=== PATIENT | female | born 1940 | race Caucasian/White ===

== ENCOUNTER 2017-10-11 14:34 | Day surgery (SDC) | payer MEDICARE, OTHER ==
[~2017-10-11] VITALS: Ht 152.4 cm; Wt 56.9 kg
[~2017-10-11 14:34] MED LIST: ESTR.05PBW TOP; FAMO20 PO; GABA100 PO; HYDACE5 PO; INTE30I SC; NIFE30ER PO; ONDA4ODT MM; OXYACE5T PO; PROM25 PO; RXONDA4ODT MM; TIMO.25OPS OD; VESICARE
== END 2017-10-11 15:22 | disposition home or self-care (01) ==
LOC: ORSCSDS 14:34
PROVIDERS: Anesthesiology
PROC: 3E0R33Z Introduction of Anti-inflammatory into Spinal Canal, Percutaneous Approach (ICD-10-PCS; principal; 2017-10-11 15:30)
DX: M51.16 Intervertebral disc disorders with radiculopathy, lumbar region (principal); M48.061 Spinal stenosis, lumbar region without neurogenic claudication; M43.16 Spondylolisthesis, lumbar region; E11.9 Type 2 diabetes mellitus without complications; G35 Multiple sclerosis; I10 Essential (primary) hypertension; E78.00 Pure hypercholesterolemia, unspecified; Z79.84 Long term (current) use of oral hypoglycemic drugs
CPT/HCPCS: J1040

== ENCOUNTER → 2019-03-01 | Outpatient (CLI) | payer MEDICARE, OTHER ==
[2019-03-01 15:32] LABS: Adenovirus F 40/41 Not Detected (NOT DETECT); Astrovirus Not Detected (NOT DETECT); Campylobacter Sp Not Detected (NOT DETECT); Cryptosporidium Not Detected (NOT DETECT); Cyclospora Cayetanensis Not Detected (NOT DETECT); E. Coli O157 Not Detected (NOT DETECT); Entamoeba Histolytica Not Detected (NOT DETECT); Enteroaggregative E. coli-EAEC Not Detected (NOT DETECT); Enteropathogenic E. coli-EPEC Not Detected (NOT DETECT); Enterotoxigenic E. coli-ETEC Not Detected (NOT DETECT); Giardia Lamblia Not Detected (NOT DETECT); Norovirus GI/GII Not Detected (NOT DETECT); Plesiomonas Shigelloides Not Detected (NOT DETECT); Rotavirus A Not Detected (NOT DETECT); Salmonella Sp Not Detected (NOT DETECT); Sapovirus Not Detected (NOT DETECT); Shiga Toxin-prod E. coli-STEC Not Detected (NOT DETECT); Shigella/Enteroin E. coli-EIEC Not Detected (NOT DETECT); Vibrio Cholerae Not Detected (NOT DETECT); Vibrio Sp Not Detected (NOT DETECT); Yersinia Enterocolitica Not Detected (NOT DETECT)
== END | disposition home or self-care (01) ==
LOC: LAB 13:32 → LAB SHORT 13:32 → LAB FUT 02-28 18:00
PROVIDERS: Family Medicine
DX: A09 Infectious gastroenteritis and colitis, unspecified (principal)
CPT/HCPCS: 0097U

== ENCOUNTER → 2021-04-11 | Outpatient (CLI) | payer MEDICARE, OTHER | LOC: LAB 11:44 → LAB SHORT 11:44 | DX: D48.5 Neoplasm of uncertain behavior of skin (principal); Z88.0 Allergy status to penicillin; Z88.8 Allergy status to other drugs, medicaments and biological substances | CPT/HCPCS: 88305 ==

== ENCOUNTER 2023-01-30 18:27 | Inpatient (IN) | payer OTHER, MEDICARE ==
[~2023-01-30] VITALS: Ht 149.9 cm; Wt 70.2 kg
[2023-01-30] MEDS ORDERED: MYRBETRIQ50 MG PO (19:10)
[2023-01-30] MEDS ORDERED: PRAV20 PO (19:19)
[2023-01-30] MEDS ORDERED: TRIM100 PO (19:19)
[2023-01-30] MEDS ORDERED: EUTHYROX50 MCG PO (19:20)
[2023-01-30] MEDS ORDERED: PANT40 PO (19:21)
[2023-01-30] MEDS ORDERED: HYDCHL25 PO (19:23)
[2023-01-30] MEDS ORDERED: METF500 PO (19:24)
[2023-01-30 19:25] LABS: BASOPHILS ABSOLUTE AUTO 0.05 K/mm3 (0.00-0.23); BASOPHILS PERCENT AUTO 0 % (0-2); EOSINOPHILS ABSOLUTE AUTO 0.05 K/mm3 (0.00-0.68); EOSINOPHILS PERCENT AUTO 0 % (0-6); Hematocrit 40.6 % (33.0-51.0); Hemoglobin 13.6 g/dL (11.5-16.0); IMMATURE GRAN ABSOLUTE AUTO 0.05 K/mm3 (0.00-0.10); IMMATURE GRAN PERCENT AUTO 0 % (0-1); LYMPHOCYTES ABSOLUTE AUTO 2.16 K/mm3 (0.84-5.20); LYMPHOCYTES PERCENT AUTO 15 % (21-46); MONOCYTES ABSOLUTE AUTO 1.18 K/mm3 (0.16-1.47); MONOCYTES PERCENT AUTO 8 % (4-13); Mean Corpuscular HGB 29.6 pg (26.0-34.0); Mean Corpuscular HGB Conc 33.5 g/dL (31.5-36.5); Mean Corpuscular Volume 88 fL (80-100); Mean Platelet Volume 10.9 fL (9.1-12.4); NEUTROPHILS ABSOLUTE AUTO 10.56 K/mm3 (1.96-9.15); NEUTROPHILS PERCENT AUTO 75 % (41-73); Platelet Count 319 K/mm3 (150-400); RDW Coefficient Variation 13.5 % (11.7-14.2); RDW Standard Deviation 43.5 fL (35.1-46.3); White Blood Cell Count 14.05 K/mm3 (4.00-11.30)
[2023-01-30 19:35] LABS: Albumin, Blood 3.8 g/dL (3.4-5.0); Albumin/Globulin Ratio 1.2 (0.8-1.8); Bilirubin, Total 0.5 mg/dL (0.1-1.0); Bun/Creatinine Ratio 27.2 (12.0-20.0); Calcium, Blood 9.5 mg/dL (8.5-10.1); Creatinine, Blood 1.03 mg/dL (0.40-1.00); Globulin, Blood 3.1 g/dL (2.2-4.0); Potassium, Blood 4.2 mmol/L (3.5-5.5); Total Protein, Blood 6.9 g/dL (6.4-8.2)
[2023-01-31] VITALS (14 sets, daily range): BP systolic 102–186; BP diastolic 38–88
[2023-01-31] MEDS ORDERED: COSOPT PF EYE1 EACH (00:13)
[2023-01-31] MEDS ORDERED: GABA100 PO (00:15)
--- NOTE | 2023-01-31 01:00 | NUR ---
TRANSFER NOTE THIS RN RECEIVED REPORT VIA PHONE FROM DEMOND ANDREWS IN THE ED. PT TRANSFERRED TO PCU 1 AT 2350. PT A&O X4. ABLE TO MAKE NEEDS KNOWN. VERBALIZED DESIRE TO BE DNR, GRANDDAUGHTER AT BEDSIDE WHO AGREES; CONTACTED MD RIZVI TO CHANGE CODE STATUS. WRISTBAND ON LEFT ARM AND DOORWAY. PT DENIES CHEST PAIN/PRESSURE, DIZZINESS, AND SOB UPON ARRIVAL. 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 BP STABLE. ON RA WITH SPO2 >92%. CARDIOLOGY CONSULT PLACED. PADS PLACED ON PT WITH ZOLL AT BEDSIDE. PT REPORTED FEELING "PRESSURE IN HER BLADDER" BLADDER SCAN SHOWING 665 MLS OF URINE; STRAIGHT CATH PER PROTOCOL FOR 600MLS OUT. UA SENT TO LAB PER ORDER. PUREWICK IN PLACE FOR INCONTINENCE. BED IN LOWEST POSITION AND CALL LIGHT WITHIN REACH.
[2023-01-31 05:05] LABS: BASOPHILS ABSOLUTE AUTO 0.05 K/mm3 (0.00-0.23); BASOPHILS PERCENT AUTO 0 % (0-2); EOSINOPHILS ABSOLUTE AUTO 0.03 K/mm3 (0.00-0.68); EOSINOPHILS PERCENT AUTO 0 % (0-6); Hemoglobin 12.6 g/dL (11.5-16.0); IMMATURE GRAN ABSOLUTE AUTO 0.03 K/mm3 (0.00-0.10); IMMATURE GRAN PERCENT AUTO 0 % (0-1); LYMPHOCYTES ABSOLUTE AUTO 2.61 K/mm3 (0.84-5.20); LYMPHOCYTES PERCENT AUTO 23 % (21-46); MONOCYTES ABSOLUTE AUTO 1.18 K/mm3 (0.16-1.47); MONOCYTES PERCENT AUTO 10 % (4-13); Mean Corpuscular HGB 29.6 pg (26.0-34.0); Mean Corpuscular HGB Conc 33.2 g/dL (31.5-36.5); Mean Corpuscular Volume 89 fL (80-100); Mean Platelet Volume 11.1 fL (9.1-12.4); NEUTROPHILS ABSOLUTE AUTO 7.49 K/mm3 (1.96-9.15); NEUTROPHILS PERCENT AUTO 66 % (41-73); Platelet Count 285 K/mm3 (150-400); RDW Coefficient Variation 13.5 % (11.7-14.2); RDW Standard Deviation 44.1 fL (35.1-46.3); Red Blood Cell Count 4.25 M/mm3 (3.80-5.20); White Blood Cell Count 11.39 K/mm3 (4.00-11.30)
[2023-01-31 05:25] LABS: Albumin, Blood 3.2 g/dL (3.4-5.0); Albumin/Globulin Ratio 1.1 (0.8-1.8); Bilirubin, Total 0.5 mg/dL (0.1-1.0); Bun/Creatinine Ratio 23.3 (12.0-20.0); Calcium, Blood 8.6 mg/dL (8.5-10.1); Creatinine, Blood 0.9 mg/dL (0.40-1.00); Globulin, Blood 2.9 g/dL (2.2-4.0); Potassium, Blood 3.9 mmol/L (3.5-5.5); Total Protein, Blood 6.1 g/dL (6.4-8.2)
[2023-01-31 07:46] LABS: Appearance, Urine Clear (Clear); Color, Urine Pale Yellow (P-Yellow); Glucose Qualitative, Urine Neg (Neg); Ketones, Urine 1+ (Neg); Leukocyte Esterase, Urine Neg (Neg); Nitrite, Urine Neg (Neg); Protein, Urine 2+ (Neg)
[2023-01-31 07:47] LABS: Bilirubin, Urine Neg (Neg); Blood, Urine 1+ (Neg); Red Blood Cells, Urine 0-2 /hpf (0-2); Urobilinogen, Urine NORM (Normal); White Blood Cells, Urine 0-2 /hpf (0-5)
[2023-01-31 07:48] LABS: Amorphous Mod (0-Heavy); Bacteria Rare /hpf; Granular Casts 0-2 /lpf (0); Squamous Epithelial Cells Not Seen /hpf (Few)
--- NOTE | 2023-01-31 11:05 | NUR ---
AM NOTES: DR CRUZ ALREADY CAME BY AND SAW PT, PT AGREEABLE FOR PACEMAKER PLACEMENT. PT KEPT NPO SINCE MIDNIGHT. PT A&OX4, ABLE TO MAKE NEEDS KNOWN, GRANDDAUGHTER AT THE BEDSIDE. VITALS HRR THIRD DEGREE HEART BLOCK 40-70'S, PT DENIES ANY CHEST PAIN/PRESSURE/LIGHTHEADED OR DIZZY. SBP 160'S, SATS ABOVE 95% ON RA, AFEBRILE. PT C/O PAIN FORM HITTING HEAD FROM FALL AT HOME, ICE PACK OFFERED, PT STARTED ON TYLENOL 1000MG BID PER HOME DOSE. PT LAYING IN BED NO OTHER COMPLAINS, PUREWICK IN PLACE PT REPORTED RETENTION DUE TO MS, PT WAS BLADDER SCANNED >300 PT ABLE TO VOID ABOUT 200MLS AFTER. CALL LIGHTS IN REACH, WILL CONTINUE TO MONITOR
--- NOTE | 2023-01-31 18:29 | NUR ---
PT ARRIVED BACK FROM THE [facility] POST PACEMAKER PLACEMENT, LEFT UPPER CHEST WALL SITE WITH PRESSURE DRESSING INTACT NO HEMATOMA OR BLEEDING NOTED AROUND THE SITE, LEFT ARM SLING IN PLACE, PT WAS INSTRUCTED NOT TO USE/EXERT LEFT ARM PT VERBALIZED UNDERSTANDING. VITALS HRR VPACED 90'S PER REPORT PT HAS DUAL CHAMBER PACEMAKER SET AT 60'S, SBP 150'S, SATS ABOVE 95% ON RA, AFEBRILE. GRANDDAUGHTER REMAINED AT THE BEDSIDE. PT WITH SOME TENDERNESS IN THE SITE TOLERABLE AT THIS TIME. PT CURRENTLY EATING DINNER. NO OTHER ISSUES AT THIS TIME, CALL LIGHTS IN REACH WILL REPORT TO ONCOMING SHIFT
--- NOTE | 2023-01-31 20:42 | NUR ---
ASSUMPTION OF CARE THIS RN ASSUMED CARE OF PATIENT AT 1900. REPORT TAKEN FROM SOLOMON ANDREWS. PT A&O X4, ABLE TO MAKE NEEDS KNOWN. AV PACED WITH HR 60'S. DENIES CHEST PAIN/PRESSURE. REPORTS TENDERNESS AT SITE. PRESSURE DRESSING C/D/I, NO OOZING, BLEEDING, DISCOLORATION, OR SUBCUTANEOUS EMPHYSEMA NOTED. BP STABLE. AFEBRILE. SPO2 >92% ON RA. SLING ON RIGHT ARM. PT VERBALIZED UNDERSTANDING OF RESTRICTIONS TO MOVEMENT OF ARM. BED IN LOWEST POSITION AND CALL LIGHT WITHIN REACH.
[2023-02-01] VITALS (9 sets, daily range): BP systolic 96–206; BP diastolic 62–90
--- NOTE | 2023-02-01 04:14 | NUR ---
SHIFT SUMMARY NO ACUTE CHANGES OVERNIGHT. PT AV PACED WITH RATE IN THE 60'S. BP STABLE. AFEBRILE. ON RA WITH SPO2 >92%. PT CALLING APPROPRIATELY. LEFT CHEST WALL PACEMAKER SITE DRESSING C/D/I. PT REPORTS TENDERNESS WITH PALPATION, NO SIGNS OF OOZING, BLEEDING, DISCOLORATION, OR SWELLING NOTED. BED IN LOWEST POSITION AND CALL LIGHT WITHIN REACH. THIS RN WILL CONTINUE TO MONITOR UNTIL SHIFT CHANGE AT 0700.
[2023-02-01 04:27] LABS: BASOPHILS ABSOLUTE AUTO 0.04 K/mm3 (0.00-0.23); BASOPHILS PERCENT AUTO 0 % (0-2); EOSINOPHILS ABSOLUTE AUTO 0.07 K/mm3 (0.00-0.68); EOSINOPHILS PERCENT AUTO 1 % (0-6); Hematocrit 39.7 % (33.0-51.0); Hemoglobin 13.3 g/dL (11.5-16.0); IMMATURE GRAN ABSOLUTE AUTO 0.03 K/mm3 (0.00-0.10); IMMATURE GRAN PERCENT AUTO 0 % (0-1); LYMPHOCYTES ABSOLUTE AUTO 2.06 K/mm3 (0.84-5.20); LYMPHOCYTES PERCENT AUTO 18 % (21-46); MONOCYTES ABSOLUTE AUTO 1.34 K/mm3 (0.16-1.47); MONOCYTES PERCENT AUTO 12 % (4-13); Mean Corpuscular HGB 30.1 pg (26.0-34.0); Mean Corpuscular HGB Conc 33.5 g/dL (31.5-36.5); Mean Corpuscular Volume 90 fL (80-100); Mean Platelet Volume 10.5 fL (9.1-12.4); NEUTROPHILS ABSOLUTE AUTO 8.08 K/mm3 (1.96-9.15); NEUTROPHILS PERCENT AUTO 70 % (41-73); Platelet Count 256 K/mm3 (150-400); RDW Standard Deviation 46.1 fL (35.1-46.3); Red Blood Cell Count 4.42 M/mm3 (3.80-5.20); White Blood Cell Count 11.62 K/mm3 (4.00-11.30)
[2023-02-01 04:58] LABS: Bun/Creatinine Ratio 22.6 (12.0-20.0); Calcium, Blood 8.6 mg/dL (8.5-10.1); Creatinine, Blood 0.93 mg/dL (0.40-1.00); Potassium, Blood 3.8 mmol/L (3.5-5.5)
--- NOTE | 2023-02-01 12:59 | NUR ---
PT LEFT FOR PROCEDURE AT 1232 VIA WHEELCHAIR AND ON RA. PT ABLE TO TRANSFER TO WHEELCHAIR WITH MINIMAL ASSISTANCE. SLING IN PLACE ON LEFT ARM. PT GRANDDAUGHTER PRESENT AT TIME OF DEPARTURE.
--- NOTE | 2023-02-01 20:03 | NUR ---
SHIFT SUMMARY PT A/OX4 AND COOPERATIVE OF CARE. PT ABLE TO EXPRESS NEEDS AND CALLS APPROPIATE. PT BP ELEVATED POST PROCEDURE, MD CONTACTED, TREATED PER ORDER. OTHER VSS THROUGHOUT SHIFT WITH O2 SATS IN THE 90'S ON RA. PT WENT TO FLEET DIRECTOR TO HAVE PACER LEAD REATTACHED. PACER SITE C/D/I, ICE PACK IN PLACE. SHOULDER IMMOBILIZER IN PLACE. NO REPORT OF CHEST PAIN/PRESSURE THROUGHOUT SHIFT. NO REPORT OF SOB THROUGHOUT SHIFT. NO OTHER EVENTS DURING SHIFT.
--- NOTE | 2023-02-02 04:15 | NUR ---
SHIFT SUMMARY NO ACUTE CHANGES THIS SHIFT. VSS. AXO. PACED. BP STABLE. ON RA. CONTINENT. IV INFILTRATED AT BEGINNING OF SHIFT, NEW ONE PLACED VIA US. ARM IMMOBILIZER IN PLACE TO PROTECT PACER LEAD PLACEMENT. PT ADMINISTERED SLEEP AID AND GABAPENTIN ER REQUEST TO HELP WTIH SLEEPING THIS SHIFT, SUCCESFUL. PT HAS BEEN RESTING QUIETELY THIS SHIFT. WALKED ONCE AROUND UNIT AT BEGINNNG OF SHIFT W/OUT INCIDENT OR TELEMETRY EVENT.
[2023-02-02 05:11] VITALS: BP 113/64
[2023-02-02 07:46] VITALS: BP 146/89
[2023-02-02] MEDS ORDERED: ESTRADIOL1 EAC2 TOP (09:23)
[2023-02-02] MEDS ORDERED: LOSA25 PO (09:23)
[2023-02-02] MEDS ORDERED: VISBIOME 112.51 EACH PO (09:24)
[2023-02-02] MEDS ORDERED: Keflex500 MG PO (09:25)
--- NOTE | 2023-02-02 13:14 | NUR ---
DISCHARGE UPDATE DISCHARGE PACKET GONE OVER WITH PT AND PT DAUGHTER AT 1215. PT DISCHARGED AT 1246 VIA WHEELCHAIR AND ON RA. PT ABLE TO TRANSFER SELF TO AND FROM WHEELCHAIR WITH MINIMAL ASSISTANCE, TOLERATED WELL. PT BELONGINGS IN BAG AND WITH PT DURING TRANSFER. DISCHARGE PACKET WITH PT AT TIME OIF DISCHARGE. PACER ID CARD WITH PT AT TIME OF DISCHARGE. PT DISCHARGED WITH SHOULDER IMMOBILOZER IN PLACE, PACER SITE C/D/I. IV REMOVED BY HR CLERK.
== END 2023-02-02 12:46 | disposition home or self-care (01) | DRG 243 ==
LOC: ER 18:27 → PCU 18:28
PROVIDERS: Emergency Medicine; Internal Medicine Cardiovascular Disease; ADMIT Internal Medicine
PROC: 0JH606Z Insertion of Pacemaker, Dual Chamber into Chest Subcutaneous Tissue and Fascia, Open Approach (ICD-10-PCS; principal; 2023-01-31)
PROC: 02H63JZ Insertion of Pacemaker Lead into Right Atrium, Percutaneous Approach (ICD-10-PCS; 2023-01-31)
PROC: 02HK3JZ Insertion of Pacemaker Lead into Right Ventricle, Percutaneous Approach (ICD-10-PCS; 2023-01-31)
DX: I44.2 Atrioventricular block, complete (principal); I16.1 Hypertensive emergency; N18.4 Chronic kidney disease, stage 4 (severe); I12.9 Hypertensive chronic kidney disease with stage 1 through stage 4 chronic kidney disease, or unspecified chronic kidney disease; G35 Multiple sclerosis; E78.5 Hyperlipidemia, unspecified; Z66 Do not resuscitate; R73.03 Prediabetes; E03.9 Hypothyroidism, unspecified; K21.9 Gastro-esophageal reflux disease without esophagitis; D72.828 Other elevated white blood cell count; G62.9 Polyneuropathy, unspecified; W01.0XXA Fall on same level from slipping, tripping and stumbling without subsequent striking against object, initial encounter; Z88.8 Allergy status to other drugs, medicaments and biological substances; Z79.899 Other long term (current) drug therapy; Z88.0 Allergy status to penicillin; Z79.891 Long term (current) use of opiate analgesic; Z98.890 Other specified postprocedural states; Z87.442 Personal history of urinary calculi; Z85.828 Personal history of other malignant neoplasm of skin; Z79.890 Hormone replacement therapy; Z79.84 Long term (current) use of oral hypoglycemic drugs
CPT/HCPCS: 33208; 33215; 36415; 70450; 71045; 72125; 76937; 80048; 80053; 81001; 82947; 84484; 85025; 93005; 93010; 93306; 96361; 96374; 97110; 97162; 97530; 99152; 99153; 99285-25; A9270; C1769; C1781; C1785; C1894; C1898; G0378; J0360; J1644; J2250; J2405; J2765; J3010; J3370; J7030; J7040; J7050

== ENCOUNTER 2023-02-13 18:05 | Inpatient (IN) | payer MEDICARE, OTHER ==
[~2023-02-13] VITALS: Ht 149.9 cm; Wt 65.6 kg
[~2023-02-13 18:05] MED LIST changes: +COSOPT PF EYE1 EACH BOTHEYES; +ESTRADIOL42.5 GM TOP; +EUTHYROX50 MCG PO; +HYDCHL12.5 PO; +Keflex500 MG PO; +LOSA25 PO; +METF500 PO; +MYRBETRIQ50 MG PO; +PANT40 PO; +PRAVASTATIN SOD10 MG PO; +VISBIOME 112.51 EACH PO
[2023-02-13 20:26] LABS: Source, Urine Clean Catch
[2023-02-13 20:32] LABS: Appearance, Urine Clear (Clear); Bilirubin, Urine Neg (Neg); Blood, Urine Neg (Neg); Color, Urine Pale Yellow (P-Yellow); Glucose Qualitative, Urine Neg (Neg); Ketones, Urine Neg (Neg); Leukocyte Esterase, Urine Neg (Neg); Nitrite, Urine Neg (Neg); Protein, Urine Neg (Neg); Urobilinogen, Urine NORM (Normal)
[2023-02-13 20:42] LABS: BASOPHILS ABSOLUTE AUTO 0.08 K/mm3 (0.00-0.23); BASOPHILS PERCENT AUTO 1 % (0-2); EOSINOPHILS ABSOLUTE AUTO 0.16 K/mm3 (0.00-0.68); EOSINOPHILS PERCENT AUTO 2 % (0-6); Hematocrit 42.2 % (33.0-51.0); Hemoglobin 14.2 g/dL (11.5-16.0); IMMATURE GRAN ABSOLUTE AUTO 0.02 K/mm3 (0.00-0.10); IMMATURE GRAN PERCENT AUTO 0 % (0-1); LYMPHOCYTES ABSOLUTE AUTO 2.21 K/mm3 (0.84-5.20); LYMPHOCYTES PERCENT AUTO 22 % (21-46); MONOCYTES ABSOLUTE AUTO 0.92 K/mm3 (0.16-1.47); MONOCYTES PERCENT AUTO 9 % (4-13); Mean Corpuscular HGB Conc 33.6 g/dL (31.5-36.5); Mean Corpuscular Volume 89 fL (80-100); Mean Platelet Volume 9.4 fL (9.1-12.4); NEUTROPHILS ABSOLUTE AUTO 6.74 K/mm3 (1.96-9.15); NEUTROPHILS PERCENT AUTO 67 % (41-73); Platelet Count 410 K/mm3 (150-400); RDW Coefficient Variation 13.2 % (11.7-14.2); RDW Standard Deviation 43.6 fL (35.1-46.3); Red Blood Cell Count 4.74 M/mm3 (3.80-5.20); White Blood Cell Count 10.13 K/mm3 (4.00-11.30)
[2023-02-13 21:18] LABS: Magnesium, Blood 2.1 mg/dL (1.6-2.4); Thyroid Stimulating Hormone 1.37 uIU/mL (0.360-4.800)
[2023-02-13 21:19] LABS: Albumin, Blood 3.6 g/dL (3.4-5.0); Bilirubin, Total 0.4 mg/dL (0.1-1.0); Bun/Creatinine Ratio 29.8 (12.0-20.0); Calcium, Blood 9.8 mg/dL (8.5-10.1); Creatinine, Blood 0.7 mg/dL (0.40-1.00); Globulin, Blood 3.7 g/dL (2.2-4.0); Phosphorus, Blood 3.2 mg/dL (2.5-4.9); Total Protein, Blood 7.3 g/dL (6.4-8.2)
[2023-02-13 22:23] LABS: Influenza A, PCR NEGATIVE (NEGATIVE); Influenza B, PCR NEGATIVE (NEGATIVE); Resp Syncytial Virus, PCR NEGATIVE (NEGATIVE); SARS-Cov-2 (COVID-19) PCR, MMC NEGATIVE (NEGATIVE)
[2023-02-13] MEDS ORDERED: MEMANTINE HCL511 PO (23:08)
[2023-02-13] MEDS ORDERED: TIMDOROPSO BOTHEYES (23:11)
--- NOTE | 2023-02-13 23:22 | NUR ---
PT CHART REVEIWED FOR ADMISSION
[2023-02-14 00:49] VITALS: BP 175/88
[2023-02-14 03:35] VITALS: BP 141/69
[2023-02-14 05:42] LABS: BASOPHILS ABSOLUTE AUTO 0.05 K/mm3 (0.00-0.23); BASOPHILS PERCENT AUTO 1 % (0-2); EOSINOPHILS PERCENT AUTO 0 % (0-6); Hematocrit 40.6 % (33.0-51.0); Hemoglobin 13.3 g/dL (11.5-16.0); IMMATURE GRAN ABSOLUTE AUTO 0.04 K/mm3 (0.00-0.10); IMMATURE GRAN PERCENT AUTO 0 % (0-1); LYMPHOCYTES ABSOLUTE AUTO 0.76 K/mm3 (0.84-5.20); LYMPHOCYTES PERCENT AUTO 7 % (21-46); MONOCYTES ABSOLUTE AUTO 0.09 K/mm3 (0.16-1.47); MONOCYTES PERCENT AUTO 1 % (4-13); Mean Corpuscular HGB 29.3 pg (26.0-34.0); Mean Corpuscular HGB Conc 32.8 g/dL (31.5-36.5); Mean Corpuscular Volume 89 fL (80-100); Mean Platelet Volume 9.8 fL (9.1-12.4); NEUTROPHILS ABSOLUTE AUTO 9.71 K/mm3 (1.96-9.15); NEUTROPHILS PERCENT AUTO 91 % (41-73); Platelet Count 374 K/mm3 (150-400); RDW Coefficient Variation 13.2 % (11.7-14.2); RDW Standard Deviation 43.3 fL (35.1-46.3); Red Blood Cell Count 4.54 M/mm3 (3.80-5.20); White Blood Cell Count 10.65 K/mm3 (4.00-11.30)
[2023-02-14 06:05] LABS: Albumin, Blood 3.2 g/dL (3.4-5.0); Bilirubin, Total 0.3 mg/dL (0.1-1.0); Bun/Creatinine Ratio 24.8 (12.0-20.0); Calcium, Blood 9.1 mg/dL (8.5-10.1); Creatinine, Blood 0.65 mg/dL (0.40-1.00); Globulin, Blood 3.3 g/dL (2.2-4.0); Potassium, Blood 4.3 mmol/L (3.5-5.5); Total Protein, Blood 6.5 g/dL (6.4-8.2)
[2023-02-14 14:28] LABS: LDL/HDL RATIO 1.2
[2023-02-14 14:29] LABS: CHOL/HDL RATIO 2.9; Cholesterol 160 mg/dL (50-200); HDL Cholesterol 55 mg/dL (>39); Low Density Lipoprotein Chol 66 mg/dL (0-110); Triglycerides 194 mg/dL (30-160); Very Low Density Lipoprot Chol 38 mg/dL (6-32)
[2023-02-14 14:44] VITALS: BP 139/73
[2023-02-14] MEDS ORDERED: TRIM100 PO (16:25)
[2023-02-14] MEDS ORDERED: GABA100 PO (16:59)
[2023-02-14] MEDS ORDERED: ACET500 PO (17:00)
[2023-02-14] MEDS ORDERED: Vitamin B-12100 MCG PO (17:01)
[2023-02-14] MEDS ORDERED: THERA-D2000 UNIT PO (17:01)
--- NOTE | 2023-02-14 18:16 | NUR ---
THE PATIENT IS A&O X4, FOLLOW COMMANDS AND WAS UP TO THE SIDE OF HER BED FOR ABOUT 90 MINUTES TODAY, THE PATIENT'S DAUGHTER IS IN HER ROOM AT THIS TIME VISITING WITH THE PATINT. THE PATIENT HAD A CONSULT WITH RADIOLOGY TODAY, ALSO A CT SCAN TO RULE OUT CARDIO PROMBLEMS, WITH HER TROPONIN DROPING TO263 @ 1445, THE PATIENT IS RESTING AND EATING DINNER, I WILLCONTINUE TO MONITOR.
[2023-02-14 19:30] VITALS: BP 137/64
--- NOTE | 2023-02-15 04:22 | NUR ---
END OF SHIFT SUMMARY UNEVENTFUL NIGHT. PT SLEPT THROUGHOUT THE NIGHT. PT A&O x4, VSS. PT EDUCATION PROVIDED REGARDING CURRENT MEDICATION REGIMEN. PT ON TELEMETRY PACED IN THE 60'S. PT TAKES 200MG OF GABAPENTIN AT 2100, ORDER WAS UPDATED TO REFLECT THAT. PT DENIED ANY DIZZINESS, AND NO C/O NAUSEA. PT ABLE TO MAKE NEEDS KNOWN. PT PLEASANT AND COOPERATIVE WITH CARE PROVIDED. CALL LIGHT WITHIN REACH, WCTM.
[2023-02-15 04:35] VITALS: BP 102/54
[2023-02-15 07:46] VITALS: BP 125/61
--- NOTE | 2023-02-15 14:24 | NUR ---
Patient up to Ambulate independently. Gait steady. Discharge instructions reviewed with patient. Patient verbalizes understanding. Copy given to patient to take home. Patient States Post-Procedure ride home has been arranged. Discharged via wheelchair to private car for ride home.THE PATIENT WAS DISCHARGED HOME AFTER HER IV WAS REMOVED.
== END 2023-02-15 14:08 | disposition home health service (06) | DRG 149 ==
LOC: ER 18:05 → MEDS 18:06 → ENPENDDIS 02-15 10:54 → MEDS 02-15 14:08
PROVIDERS: Emergency Medicine; Family Medicine; ADMIT Internal Medicine
DX: R42 Dizziness and giddiness (principal); I51.81 Takotsubo syndrome; I10 Essential (primary) hypertension; G35 Multiple sclerosis; Z66 Do not resuscitate; Z20.822 Contact with and (suspected) exposure to COVID-19; H40.9 Unspecified glaucoma; R77.8 Other specified abnormalities of plasma proteins; E11.9 Type 2 diabetes mellitus without complications; H55.00 Unspecified nystagmus; K21.9 Gastro-esophageal reflux disease without esophagitis; G62.9 Polyneuropathy, unspecified; E03.9 Hypothyroidism, unspecified; Z95.0 Presence of cardiac pacemaker; Z88.0 Allergy status to penicillin; Z88.8 Allergy status to other drugs, medicaments and biological substances; Z79.890 Hormone replacement therapy; Z79.899 Other long term (current) drug therapy; Z87.442 Personal history of urinary calculi; Z79.84 Long term (current) use of oral hypoglycemic drugs; Z90.89 Acquired absence of other organs; Z90.710 Acquired absence of both cervix and uterus; Z90.722 Acquired absence of ovaries, bilateral; Z90.49 Acquired absence of other specified parts of digestive tract; Z87.39 Personal history of other diseases of the musculoskeletal system and connective tissue
CPT/HCPCS: 0241U; 36415; 70450; 70496; 70498; 71046; 80053; 80061; 81003; 83735; 83880; 84100; 84443; 84484; 85025; 93005; 93010; 93306; 96361; 96374; 96375; 97112; 97163; 99285-25; A9270; G0378; J1100; J1650; J2405; J7030; J7120; Q9957; Q9967

== ENCOUNTER 2023-02-17 23:14 | Observation (INO) | payer MEDICARE, OTHER ==
[~2023-02-17 23:14] MED LIST changes: +ACET500 PO; +MEMANTINE HCL511 PO; +THERA-D2000 UNIT PO; +TIMDOROPSO BOTHEYES; +TRIM100 PO; +Vitamin B-12100 MCG PO
[2023-02-17 23:54] LABS: BASOPHILS ABSOLUTE AUTO 0.11 K/mm3 (0.00-0.23); BASOPHILS PERCENT AUTO 1 % (0-2); EOSINOPHILS ABSOLUTE AUTO 0.24 K/mm3 (0.00-0.68); EOSINOPHILS PERCENT AUTO 2 % (0-6); Hematocrit 39.6 % (33.0-51.0); Hemoglobin 13.2 g/dL (11.5-16.0); IMMATURE GRAN ABSOLUTE AUTO 0.06 K/mm3 (0.00-0.10); IMMATURE GRAN PERCENT AUTO 1 % (0-1); LYMPHOCYTES ABSOLUTE AUTO 3.06 K/mm3 (0.84-5.20); LYMPHOCYTES PERCENT AUTO 24 % (21-46); MONOCYTES ABSOLUTE AUTO 0.98 K/mm3 (0.16-1.47); MONOCYTES PERCENT AUTO 8 % (4-13); Mean Corpuscular HGB 29.9 pg (26.0-34.0); Mean Corpuscular HGB Conc 33.3 g/dL (31.5-36.5); Mean Corpuscular Volume 90 fL (80-100); Mean Platelet Volume 9.5 fL (9.1-12.4); NEUTROPHILS PERCENT AUTO 66 % (41-73); Platelet Count 384 K/mm3 (150-400); RDW Coefficient Variation 13.4 % (11.7-14.2); RDW Standard Deviation 44.6 fL (35.1-46.3); Red Blood Cell Count 4.41 M/mm3 (3.80-5.20); White Blood Cell Count 12.95 K/mm3 (4.00-11.30)
[2023-02-18 00:14] LABS: Albumin, Blood 3.2 g/dL (3.4-5.0); Albumin/Globulin Ratio 0.9 (0.8-1.8); Bilirubin, Total 0.2 mg/dL (0.1-1.0); Bun/Creatinine Ratio 39.1 (12.0-20.0); Calcium, Blood 9.2 mg/dL (8.5-10.1); Creatinine, Blood 0.72 mg/dL (0.40-1.00); Globulin, Blood 3.4 g/dL (2.2-4.0); Potassium, Blood 4.1 mmol/L (3.5-5.5); Total Protein, Blood 6.6 g/dL (6.4-8.2)
[2023-02-18] MEDS ORDERED: METOPROLOL SUCC25 MG PO (01:26)
[2023-02-18 03:10] VITALS: BP 174/67
--- NOTE | 2023-02-18 07:15 | NUR ---
SHIFT SUMMARY ADMIT DONE VERY PLEASENT PT A/O X4 HX OF PACEMAKER AND CHEST PAIN BUT NO PAIN SINCE ARRIVED TO ER. PT NPO AND JUST WANTS TO SLEEP. TROPS HAVE BEEN NEGATIVE AND WILL CONT TO BE DRAWN X 3. REPORT GIVEN TO DAY SHIFT.
[2023-02-18 07:28] VITALS: BP 159/72
[2023-02-18] MEDS ORDERED: ASPI81CH PO (10:48)
[2023-02-18] MEDS ORDERED: HYDR10 PO (10:49)
--- NOTE | 2023-02-18 11:22 | NUR ---
NOTE/DISCHARGE SUMMARY: PATIENT A&OX4. CALM, PLEASANT AND COOPERTAIVE c CARE. USES CALL LIGHT APPROPRIATELY AND ABLE TO MAKE NEEDS KNOWN. PATIENT DENIES CP/PRESSURE, SOB, N/V AND DIZZINESS. ON TELE, VENTRICULAR PACED HR AT 72 BPM. TROPONIN RESULT HAS BEEN CONSISTENT NEGATIVE. LUNGS CLEAR T/O TO AUSCULTATIONS. RA c SPO2 ABOVE 92%. PATIENT DECLINE FOR STRESS TEST AND WANTING TO GO HOME. RECEIVED SCHEDULED MEDS PER EMAR. VITAL SIGNS REVIEWED. CARDIAC DIET, ATE 100% OF HER BREAKFAST WITHOUT ANY DIFFICULTIES. PIV DC'D. PATIENT DISCHARGE HOME. DISCHARGE INSTRUCTIONS PACKET GIVEN TO PATIENT. EDUCATE PATIENT/DAUGHTER REGARDING ADMITTING DX OF CP, S/S, TX, BLOOD PRESSURE MONITORING c LOG BOOK, AND NEW PRESCRIBED MEDICATIONS TO HOME. PATIENT/DAUGHTER VERBALIZED UNDERSTANDING AND NO FURTHER QUESTIONS. RX WAS FAXED TO PATIENT PREFERRED PHARMACY ([facility]). ALL PATIENT PERSONAL BELONGINGS WERE SENT HOME c THE PATIENT. PATIENT LEFT THE ROOM AT AROUND 1114 AND WAS TRANSPORTED VIA WHEELCHAIR BY [facility] [employer] STAFF TO PATIENT ENTRANCE.
== END 2023-02-18 11:13 | disposition home or self-care (01) ==
LOC: ER 23:14 → MEDS 23:15
PROVIDERS: Student in an Organized Health Care Education/Training Program; ADMIT Internal Medicine
DX: R07.89 Other chest pain (principal); R06.02 Shortness of breath; G35 Multiple sclerosis; I10 Essential (primary) hypertension; E78.5 Hyperlipidemia, unspecified; Z88.0 Allergy status to penicillin; Z88.9 Allergy status to unspecified drugs, medicaments and biological substances
CPT/HCPCS: 36415; 71045; 80053; 84484; 85025; 93005; 93010; 96372; 99285-25; A9270; G0378; J1650

== ENCOUNTER → 2023-04-25 | Outpatient (CLI) | payer MEDICARE, OTHER ==
[~2023-04-25] MED LIST changes: +ASPI81CH PO; +HYDR10 PO; +METOPROLOL SUCC25 MG PO
[2023-04-25 13:24] LABS: Source, Urine Voided
[2023-04-25 14:21] LABS: Appearance, Urine Clear (Clear); Bilirubin, Urine Neg (Neg); Blood, Urine Neg (Neg); Color, Urine Yellow (P-Yellow); Glucose Qualitative, Urine Neg (Neg); Ketones, Urine Neg (Neg); Leukocyte Esterase, Urine Neg (Neg); Nitrite, Urine Neg (Neg); Protein, Urine Neg (Neg); Specific Gravity, Urine 1.015 (1.003-1.022); Urobilinogen, Urine NORM (Normal)
== END | disposition home or self-care (01) ==
LOC: LAB SHORT 10:30 → LAB 10:30
PROVIDERS: Family Medicine
DX: R30.0 Dysuria (principal)
CPT/HCPCS: 81003; 87086

== ENCOUNTER → 2024-04-02 | Outpatient (CLI) | payer MEDICARE, OTHER | LOC: LAB SHORT 17:08 → LAB 17:08 | DX: N39.0 Urinary tract infection, site not specified (principal) | CPT/HCPCS: 87077; 87086; 87186 ==

== ENCOUNTER → 2024-04-16 | Outpatient (CLI) | payer MEDICARE, OTHER ==
[2024-04-16 14:41] LABS: Source, Urine Clean Catch
[2024-04-16 15:03] LABS: Appearance, Urine Clear (Clear); Bilirubin, Urine Neg (Neg); Blood, Urine Neg (Neg); Color, Urine Yellow (P-Yellow); Glucose Qualitative, Urine Neg (Neg); Ketones, Urine Neg (Neg); Leukocyte Esterase, Urine Neg (Neg); Nitrite, Urine Neg (Neg); Protein, Urine Neg (Neg); Urobilinogen, Urine NORM (Normal)
== END | disposition home or self-care (01) ==
LOC: LAB SHORT 14:30 → LAB 14:30
PROVIDERS: Family Medicine
DX: N39.0 Urinary tract infection, site not specified (principal)
CPT/HCPCS: 81003; 87086

== ENCOUNTER → 2024-10-14 | Outpatient (CLI) | payer MEDICARE, OTHER | END | disposition home or self-care (01) | LOC: LAB 10:57 → LAB SHORT 10:57 | DX: N39.0 Urinary tract infection, site not specified (principal) | CPT/HCPCS: 87077; 87086; 87186 ==